=== PATIENT | female | born 1945 | race Caucasian/White ===

== ENCOUNTER 2018-01-07 18:50 | Inpatient (IN) | payer OTHER, BC ==
[2018-01-07] MEDS ORDERED: NS 1,000 ML IV ONE ×2 (19:55→21:08)
[2018-01-07 20:06] LABS: PLATELET COUNT 116 10^3/uL (150-400)
--- NOTE | 2018-01-07 20:17 | EDPHY ---
H & P Time Seen by Provider: 01/07/18 20:16 HPI/ROS: Chief complaint. Confusion, can't walk, back pain HPI. [age]-year-old female visiting from [place] with 3 day history back pain, confusion, decreased oral intake, can't walk. The back pain began on the drive from [place]. She has had previous lumbar compression fractures. There was however no injury. Patient is confused and at times not responsive per . She has not been able to walk. She normally walks with a walker but now is unable to walk whether off walker. No fever or cough or chest pain. She does have shortness of breath. No abdominal pain. She is able to control her bowel and bladder. No similar symptoms previously ROS Constitutional. Generalized weakness Eyes. no problems with vision ENT. no sore throat, no nasal drainage Cardiovascular. no chest pain Respiratory. Shortness of breath Abdominal. no abdominal pain, no nausea/vomiting, no diarrhea . no problems urinating MS. Low back pain Skin. no rash Lymph. no swollen glands Neuro. Can't walk and confused Past Medical/Surgical History: Past medical history seen for rheumatoid arthritis and GERD Social History: , nonsmoker, no alcohol Smoking Status: Never smoked Physical Exam: General Appearance: Alert well-developed female moderate distress vital signs show temp 37.4 degrees and heart rate 102. O2 saturation 88% on room air Eyes: Pupils equal and round no pallor or injection. ENT, Mouth: Mucous membranes are moist. Respiratory: Mild inspiratory expiratory rhonchi Cardiovascular: Regular rate and rhythm with tachycardia Gastrointestinal: Abdomen is soft and nontender, no masses, bowel sounds normal. Neurological: Awake and alert, sensory and motor exams grossly normal. Skin: Warm and dry, no rashes. Musculoskeletal: Neck is supple nontender. Tenderness to the right SI joint area but not over the lumbar spine Extremities symmetrical, full range of motion. Psychiatric: Patient is oriented X 1, there is no agitation. She thinks we are in [place] and she is unsure of the month Constitutional: Initial Vital Signs Temperature (C) 37.4 C 01/07/18 19:10 Heart Rate 102 H 01/07/18 19:10 Respiratory Rate 20 01/07/18 19:10 Blood Pressure 101/58 L 01/07/18 19:10 O2 Sat (%) 88 L 01/07/18 19:10 O2 Delivery Mode Room Air Allergies/Adverse Reactions: Sulfa (Sulfonamide Antibiotics) Allergy (Verified 01/07/18 21:43) Home Medications: Medication Instructions Recorded Denosumab [Prolia] 60 mg SQ Q180D 01/07/18 Docusate Sodium [Colace 100 MG (*)] 100 mg PO DAILY PRN 01/07/18 Folic Acid [Folic Acid 1 MG (*)] 1 mg PO DAILY 01/07/18 Hydrocodone/Acetaminophen [[place] 1 - 2 tab PO Q4H PRN 01/07/18 5/325 (*)] Leflunomide [Arava 10 mg (*)] 10 mg PO DAILY 01/07/18 Methotrexate [Xatmep] 15 mg PO MO 01/07/18 Omeprazole Magnesium 20 mg PO DAILY 01/07/18 Ondansetron [Zofran Odt] 8 mg PO TID PRN 01/07/18 Medical Decision Making - Diagnostics Imaging Results: Imaging Impressions Chest X-Ray 01/07/18 20:29 Impression: 1. Bronchitis/airways disease. 2. No definite focal pneumonia. 3. Consider chest two views when the patient's medical condition permits. Head CT 01/07/18 20:29 Impression: 1. Moderate atrophy. 2. No acute hemorrhage, hydrocephalus, or mass effect. 3. Cerebrovascular atherosclerosis. 4. No definite acute infarct. 5. Severe microvascular ischemic gliosis. 6. No epidural or subdural hematoma. Findings and recommendations discussed with Emergency Department physician, Natan Dalton M.D., at 2108 hours, on January 07, 2018. Final report concurs with initial preliminary interpretation. Lumbar Spine X-Ray 01/07/18 20:29 Impression: 1. Dextroscoliosis, with multilevel severe degenerative disk disease. 2. No definite acute compression fractures. 3. Mild old benign-appearing compression fracture of L1 vertebral body, with T12-L1 severe degenerative disk disease. 4. Consider additional CT imaging, if clinically indicated. Chest x-ray interpreted by me no pneumonia Lumbar spine x-ray shows to compression fractures of the lumbar spine Procedures: IV normal saline. Septic workup including blood and urine culture IV Rocephin ED Course/Re-evaluation: Serial evaluations. Patient is stable. Patient and I discussed imaging and lab results. We discussed treatment plan including recommendation for admission. She and her expressed understanding and agreement. Serial evaluations patient is stable. IV Rocephin Differential Diagnosis: I considered intracranial bleed, sepsis. Appears the patient has urinary tract infection but lactate negative. No evidence for pneumonia. No evidence for new lumbar compression fracture - Data Points Laboratory Results: Laboratory Results 01/07/18 20:02 01/07/18 20:02 01/07/18 01/07/18 01/07/18 21:04 21:00 20:42 WBC RBC Hgb Hct MCV MCH MCHC RDW Plt Count MPV Neut % (Auto) Lymph % (Auto) Avery % (Auto) Eos % (Auto) Baso % (Auto) Nucleat RBC Rel Count Absolute Neuts (auto) Absolute Lymphs (auto) Absolute Monos (auto) Absolute Eos (auto) Absolute Basos (auto) Absolute Nucleated RBC Immature Gran % Seg Neutrophils % Band Neutrophils % Lymphocytes % Monocytes % Eosinophils % Immature Gran # Absolute Seg Neuts Absolute Band Neuts Absolute Lymphocytes Absolute Monocytes Absolute Eosinophils Platelet Estimate Polychromasia Hypochromasia Oval Macrocytes Elliptocytes Acanthocytes (Spur) Keratocytes Schistocytes Smear Review By VBG Lactic Acid 1.9 mmol/L mmol/L (0.7-2.1) Sodium Potassium Chloride Carbon Dioxide Anion Gap BUN Creatinine Estimated GFR Glucose Calcium Total Bilirubin 1.6 mg/dL H mg/dL (0.1-1.4) Troponin I < 0.012 ng/mL ng/mL (0.000-0.034) Urine Color PADMA Urine Appearance HAZY Urine pH 5.0 (5.0-7.5) Ur Specific [place] 1.029 (1.002-1.030) Urine Protein 1+ H (NEGATIVE) Urine Ketones NEGATIVE (NEGATIVE) Urine Blood 2+ H (NEGATIVE) Urine Nitrate NEGATIVE (NEGATIVE) Urine Bilirubin NEGATIVE (NEGATIVE) Urine Urobilinogen 4.0 EU H EU (0.2-1.0) Ur Leukocyte Esterase 2+ H (NEGATIVE) Urine RBC 5-10 /hpf H /hpf (0-3) Urine WBC 25-50 /hpf H /hpf (0-3) Ur Epithelial Cells TRACE /lpf /lpf (NONE-1+) Urine Bacteria 1+ /hpf H /hpf (NONE SEEN) Urine Mucus 1+ /lpf /lpf (NONE-1+) Urine Glucose NEGATIVE (NEGATIVE) 01/07/18 01/07/18 20:02 20:02 WBC 25.36 10^3/uL H 10^3/uL (3.80-9.50) RBC 3.01 10^6/uL L 10^6/uL (4.18-5.33) Hgb 9.7 g/dL L g/dL (12.6-16.3) Hct 29.8 % L % (38.0-47.0) MCV 99.0 fL fL (81.5-99.8) MCH 32.2 pg pg (27.9-34.1) MCHC 32.6 g/dL g/dL (32.4-36.7) RDW 17.9 % H % (11.5-15.2) Plt Count 116 10^3/uL L 10^3/uL (150-400) MPV 10.8 fL fL (8.7-11.7) Neut % (Auto) Not Reported Lymph % (Auto) Not Reported Avery % (Auto) Not Reported Eos % (Auto) Not Reported Baso % (Auto) Not Reported Nucleat RBC Rel Count 0.0 % % (0.0-0.2) Absolute Neuts (auto) Not Reported Absolute Lymphs (auto) Not Reported Absolute Monos (auto) Not Reported Absolute Eos (auto) Not Reported Absolute Basos (auto) Not Reported Absolute Nucleated RBC 0.00 10^3/uL 10^3/uL (0-0.01) Immature Gran % Not Reported Seg Neutrophils % 82 % % Band Neutrophils % 2 % % Lymphocytes % 3 % % Monocytes % 9 % % Eosinophils % 6 % % Immature Gran # Not Reported Absolute Seg Neuts 20.80 10^/uL H 10^/uL (1.70-6.50) Absolute Band Neuts 0.51 10^3/uL 10^3/uL (0.00-0.70) Absolute Lymphocytes 0.76 10^3/uL L 10^3/uL (1.00-3.00) Absolute Monocytes 2.28 10^3/uL H 10^3/uL (0.30-0.80) Absolute Eosinophils 1.52 10^3/uL H 10^3/uL (0.03-0.40) Platelet Estimate DECREASED L (ADEQ) Polychromasia 1+ H Hypochromasia 1+ H Oval Macrocytes 1+ H Elliptocytes 1+ H Acanthocytes (Spur) 2+ H Keratocytes 2+ H Schistocytes 1+ H Smear Review By Pending VBG Lactic Acid Sodium 133 mEq/L L mEq/L (135-145) Potassium 4.4 mEq/L mEq/L (3.5-5.2) Chloride 102 mEq/L mEq/L (97-110) Carbon Dioxide 23 mEq/l mEq/l (22-31) Anion Gap 8 mEq/L mEq/L (8-16) BUN 15 mg/dL mg/dL (7-23) Creatinine 0.7 mg/dL mg/dL (0.6-1.0) Estimated GFR > 60 Glucose 99 mg/dL mg/dL (70-100) Calcium 7.7 mg/dL L mg/dL (8.5-10.4) Total Bilirubin Troponin I Urine Color Urine Appearance Urine pH Ur Specific [place] Urine Protein Urine Ketones Urine Blood Urine Nitrate Urine Bilirubin Urine Urobilinogen Ur Leukocyte Esterase Urine RBC Urine WBC Ur Epithelial Cells Urine Bacteria Urine Mucus Urine Glucose Medications Given: Discontinued Medications Sodium Chloride (Ns) 1,000 mls @ 0 mls/hr IV EDNOW ONE; Wide Open PRN Reason: Protocol Stop: 01/07/18 19:56 Last Admin: 01/07/18 20:06 Dose: 1,000 mls Ceftriaxone Sodium/Dextrose (Rocephin 1 Gm (Premix)) 50 mls @ 100 mls/hr IV EDNOW ONE PRN Reason: Protocol Stop: 01/07/18 21:37 Last Admin: 01/07/18 21:37 Dose: 50 mls Sodium Chloride (Ns) 1,000 mls @ 0 mls/hr IV ONCE ONE; Wide Open PRN Reason: Protocol Stop: 01/07/18 21:09 Last Admin: 01/07/18 21:43 Dose: 1,000 mls Departure - Departure Disposition: [facility] Inpatient Acute Clinical Impression: UTI (urinary tract infection) Qualifiers: Urinary tract infection type: site unspecified Hematuria presence: without hematuria Qualified Code(s): N39.0 - Urinary tract infection, site not specified Condition: Fair Referrals: NONE *PRIMARY CARE P,. [Primary Care Provider] - As per Instructions
--- NOTE | 2018-01-07 22:04 | CPEKG ---
Heart Rate: 101 RR Interval: 594 P-R Interval: 172 QRSD Interval: 82 QT Interval: 332 QTC Interval: 431 P [place]: 69 QRS [place]: -44 T Wave [place]: 57 EKG Severity - ABNORMAL ECG - EKG Impression: SINUS TACHYCARDIA EKG Impression: LEFT ATRIAL ABNORMALITY EKG Impression: LEFT AXIS DEVIATION EKG Impression: LOW VOLTAGE THROUGHOUT EKG Impression: CONSIDER ANTERIOR INFARCT Electronically Signed By: Natan Dalton 07-Jan-2018 23:55:21
[2018-01-07] MEDS ORDERED: ACETAMINOPHEN 325 MG TAB PO PRN (22:43)
[2018-01-07] MEDS ORDERED: NS 1,000 ML IV SCH (22:45)
[2018-01-07 22:55] LABS: INR 1.37 (0.83-1.16)
[2018-01-08] MEDS: LIDOCAINE 4%/MENTHOL 1% PATCH TD SCH (00:15)
--- NOTE | 2018-01-08 02:47 | CPEKG ---
Heart Rate: 115 RR Interval: 522 P-R Interval: 137 QRSD Interval: 64 QT Interval: 288 QTC Interval: 399 P [place]: 95 QRS [place]: -79 T Wave [place]: 74 EKG Severity - ABNORMAL ECG - EKG Impression: SINUS TACHYCARDIA EKG Impression: PROBABLE LEFT ATRIAL ABNORMALITY EKG Impression: INFERIOR INFARCT, OLD EKG Impression: LATERAL INFARCT, AGE INDETERMINATE EKG Impression: ANTERIOR INFARCT, AGE INDETERMINATE Electronically Signed By: Ke Pavon 08-Jan-2018 09:36:49
[2018-01-08] MEDS: ALBUTEROL 3 ML DEYVIAL IH PRN ×2 (03:00→05:26)
--- NOTE | 2018-01-08 04:47 | GHP ---
[f rep st] HISTORY AND PHYSICAL DATE OF ADMISSION: 01/07/2018 [place]CP: [place]. SOURCE: Patient is currently confused, fatigued. She does intermittently say hello and says a few w ords, but does not really follow any commands with regularity. is at bedside and provides hi story. Case was discussed with ED provider and EMR was also reviewed. CHIEF COMPLAINT: Confusion and back pain. HISTORY OF PRESENT ILLNESS: This is a 72-year-old female with longstanding history of rheumatoid art hritis on DMARD therapy with methotrexate as well as Prolia injection, chronic pain, history of lumba r compression fracture, and GERD, who presents to the emergency department today with her usha dove complaints of several days of confusion and right low back pain. Patient and her drove in from [place] approximately a week ago and a few days. Patient had been complaining of some increasing b ack pain, but they thought perhaps it was just from sitting in the car for too long. Patient subsequ ently had some increasing confusion, decreased oral intake, and so brought patient into the E D for evaluation. 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 Patient has not had any known fevers, chills, cough, rhinorrhea, sore throat, nausea, vomiting, a nd just diarrhea starting today. She has no melena, hematochezia. No known rashes or sores. Since arrival to the floor, patient has subsequently developed a little bit of wheezing and tachypnea. Her mentation has been approximately the same with persistent complaints of low back pain. Per the husb and, patient does have a history of intermittently requiring nebulizer treatments when in the hospita l postoperatively for wheezing. She has no known lung disease. No asthma, COPD. is unsure if she has any history of pulmonary fibrosis. REVIEW OF SYSTEMS: GENERAL: No fevers, chills, generalized weakness, generalized deconditioning, de creased appetite. SKIN: No known rashes or sores. ENT: No congestion, sore throat known. EYES: Unknown if patient has had any complaints of changes in vision. CV: No reported complaints of chest pain or palpitations. RESPIRATORY: Wheezing as noted above. Patient complains of shortness of terri ath. GI: No known nausea, vomiting, abdominal pain, episode of diarrhea currently. : No known d ysuria or hematuria. Right flank pain. MUSCULOSKELETAL: Chronic back pain, joint pain due to RA. NEURO: Confusion, as per above. Patient with generalized weakness. Does require moderate amount of assistance, is unable to ambulate independently, but can usually help her stand and transfer to wheelchair, wheelchair to toilet. PSYCH: No increase in anxiety. Patient with confusion, as ab ove. ALLERGIES: To sulfa, has an adverse reaction with the methotrexate. No known react allergic reactio n. HOME MEDICATIONS: Methotrexate which was taken yesterday, 50 mg p.o. on Mondays; Arava 10 mg p.o. da ; Prolia injection 60 mg every 6 months; Zofran ODT 8 mg p.o. t.i.d. p.r.n.; folic acid 1 mg p.o. daily; docusate 100 mg p.o. daily p.r.n.; omeprazole 20 mg p.o. daily; [place] 5/325, 1-2 tabs p.o. q.4 hours p.r.n. for pain. PAST MEDICAL HISTORY: Significant for rheumatoid, GERD, lumbar compression fractures, history of C d ifficile, history previously of wheezing, occasional urinary incontinence. 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 FAMILY HISTORY: No known lung disease. No known autoimmune disorders. SOCIAL HISTORY: Patient is . She lives with her . She is visiting from [place] and they travelled by car. Patient is generally mobile with limited capacity. In the last several days, she has not been able to ambulate independently but able to stand. She does not smoke, drink, or do marcella gs. COR STATUS: DNR/DNI per . Patient does have advance directive in place. PHYSICAL EXAM: VITAL SIGNS: Blood pressure 101/58, heart rate 102, O2 sat 88% on room air, temperat ure at this time. Vitals currently, 117/73, heart rate increased from the low 90s to the one-teens. Respiratory rate 18, O2 sat 97 on 2 L by nasal cannula, temperature 37.1. GENERAL: Patient without any acute distress. She does have some tachypnea. She lays quietly in bed asleep, kind of somnolen t but arousable. is at bedside. Patient is not really able to follow commands. She does ap pear much older than stated age. She has some increased work of breathing, shallow breath. Expirato ry wheezes. CV: Tachycardic with regular rhythm. Limited exam secondary to tachycardia and respira tory status, but I do not appreciate loud murmurs. She does have 1 to 2+ pitting edema bilateral low er extremities, which reports is about baseline. No calf tenderness. LUNGS: With expirator y wheezes bilaterally. Patient has diminished breath sounds at the bases with crackles. Left greate r than right. ABDOMEN Positive bowel sounds. Obese, soft, nontender to palpation. No rebound, gua rding, or masses appreciated. : No Lucas catheter in place. No suprapubic tenderness to palpatio n. EXTREMITIES: As noted above with to 1 to 2+ pitting edema bilateral lower extremities below the knee. Patient with decreased pedal pulses bilaterally, likely secondary to edema. NEURO: Limited e xam secondary to patient's ability to cooperate. She does appear more alert when staff are getting h er up to go to the commode and she is a little argumentative but interactive. She is pleasant and ar gumentative in jest. She has generalized weakness, does require assist to pivot. She does move all extremities. Strength is significantly weak in upper and lower extremities. LABORATORY STUDIES: WBC 25.36, H and H 9.7 and 29.8, MCV of 99.0, platelet count is 116. Patient wi th absolute segmented neutrophils of 20.8, no absolute increase in bands, percentage is not completed , smear is pending. PT 7.0, INR is 1.37, PTT is 37.7. Lactic acid 1.9. Sodium is 133, potassium is 4.4, chloride is 102, CO2 is 23, anion gap is 8, BUN 50, creatinine 0.7, GFR greater than 60, glucos e 99, calcium 7.7, total bilirubin is 1.6, conjugated bilirubin 0.9, ALT is 26, AST is 45, alk phos 2 02. Troponin is negative. Total protein is 5.8, albumin is 2.8. UA specific gravity 1.029 with pH of 5.0, hazy, paula urine, 1+ protein, 2+ blood, negative nitrates, 2+ leuk esterase, rbc's 5-10, wbc 's 25-50, bacteria 1+, mucus 1+, glucose is negative. Blood cultures, urine cultures pending. EKG initial from the emergency department: Sinus tachycardia in the 100s with left axis deviation, l ow voltage, Q-waves present in the inferior, anterior, and lateral leads. No acute ST elevations or depressions. QTc is 431. Chest x-ray: Image report was reviewed myself, showing bronchitis and airway disease. No definitive focal pneumonia. CT head without contrast: Showing moderate atrophy. No acute hemorrhage, hydrocephalus, or mass-eff ect. Cerebrovascular atherosclerosis. No definitive acute infarct. Severe microvascular ischemic g liosis. No epidural, subdural hematoma. Lumbar spine x-rays: Image report reviewed, showing dextroscoliosis, multilevel severe degenerative disk disease. No acute compression fractures. Mild old benign-appearing compression fracture L1, wi th T12-L1 severe degenerative disk disease. Repeat EKG on the medical floor: Reviewed, showing similar sinus tachycardia, slightly decreased vol tage. Q-waves in the anterolateral and inferior leads again. No acute ST changes. QTc 399. ASSESSMENT AND PLAN: 1. This is a 72-year-old female with history of rheumatoid arthritis, on disease-modifying antirheum atic drugs therapy and immunosuppressive therapy with Arava, who presents to the emergency department today with several-day history of confusion and complaints of right-sided back pain. Patient with a history of remote lumbar compression fracture and osteoporosis, on Prolia. Her urine was concerning for urinary tract infection and patient has been started on Rocephin. Patient's blood pressures wer e responsive to fluid. She did have a few low blood pressures noted. They also responded to continu ed infusion. She did receive 2 L intravenous fluids and been started on sepsis protocol. Blood cult ures, urine culture are all pending. Patient has been started on Rocephin. Her quick Sequential Org an Failure Assessment score is 2 at this time given her confusion and hypotension which was transient . Currently blood pressures are adequate, slightly elevated. Patient also with increasing respirato ry status with expiratory wheezing. There is no previous documented history or known history per hus band of asthma or chronic obstructive pulmonary disease. It is unknown if patient has developed any pulmonary fibrosis related to her rheumatoid or the disease-modifying antirheumatic drugs therapy. Carlitos macdonald does note that patient has required nebulizer treatments during her previous hospitalizations. She does have expiratory wheezes and some crackles bibasilarly so I am unsure if she has developed a little bit of pulmonary edema. She has known history of congestive heart failure, but she does hav e some chronic lower extremity edema, which patient does state is at baseline. Will continue with Ro cephin therapy. Cultures are pending, as above. No evidence of pneumonia was on chest x-ray, so zoila l hold off on escalating antibiotic therapy at this time. The patient may require echocardiogram sherley lalita CTA. However, at this time, will provide patient with nebulizer treatment, monitor for any impro vement in respiratory status. Consider echocardiogram and CTA tomorrow if she continues to have symp toms. She does not required any intubation at this time or BiPAP. reports also that she is a do not resuscitate. 2. Back pain, likely related to urinary tract infection versus multifactorial including history of l umbar compression fracture and chronic joint pain in setting of rheumatoid arthritis. 3. 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 Antibiotics as noted above. 4. Anemia, likely of chronic disease. No evidence of active bleeding at this time. Will continue t o monitor closely. 5. Thrombocytopenia, likely related to patient's chronic illness and her medications for rheumatoid arthritis. 6. Coagulopathy. Patient is not on any anticoagulation at this time. 7. Hyponatremia, is likely secondary to hypovolemia as patient did have some low blood pressures pre viously; now improved status post intravenous fluids. 8. Hypocalcemia. Seems to correct for low albumin. Plan to check ionized in the morning. 9. Hypoalbuminemia, likely related to patient's chronic illness versus malnutrition. Will plan to c ontinue to monitor. 10. Hyperbilirubinemia, elevated in setting of sepsis. Patient without any evidence of abdominal pa in. Will continue to monitor along with LFTs. 11. Gastroesophageal reflux disease. Continue patient's proton pump inhibitor. 12. Rheumatoid arthritis. Holding patient's disease-modifying antirheumatic drugs and immunosuppre ssive therapy. 13. History lumbar compression fracture. Lidoderm patch applied as necessary. 14. Fluid, electrolyte, nutrition. Will discontinue intravenous fluids at this time, saline lock, a nd give patient a chance to mobilize the fluid. If not, may need to consider initiation of Lasix aft er some reassessment. Electrolytes will be monitored and replaced if needed. Diet as tolerated. 15. Prophylaxis. Sequential compression devices. Holding anticoagulation in setting of thrombocyto penia and increased bleeding risks. 16. Cor status is do not resuscitate/do not intubate. Reviewed with the . Their family phys hector has advanced directives on file. 17. Course/disposition. Patient has been admitted to inpatient status on the medical floor at this time. Anticipate that she will require greater than 2 midnights' stay in setting of severe sepsis wi th confusion, encephalopathy. /[id number]/MODL
[2018-01-08] MEDS ORDERED: FUROSEMIDE 20 MG/2 ML VIAL IVP ONE (05:20)
[2018-01-08 06:01] LABS: PLATELET COUNT 95 10^3/uL (150-400)
--- NOTE | 2018-01-08 08:15 | PDMN ---
Medical Necessity Medical necessity: est los>2mn for severe sepsis w/confusion and encephalopathy , concerning for UTI, back pain, hyponatremia, and wheezing/crackles; admit for IV abx, nebs, and follow cx's; comorbidities include RA, immunosuppressive state , anemia, hx lumbar fx and CHF; per order and H&P 01/07/18
[2018-01-08] MEDS: ENOXAPARIN 40 MG/0.4 ML SYR SC SCH (09:00)
[2018-01-08] MEDS ORDERED: DOCUSATE SODIUM 100 MG CAP PO PRN (09:13)
[2018-01-08] MEDS ORDERED: PROTOCOL CALCIUM 1 DOSE IV PRN (09:15)
--- NOTE | 2018-01-08 09:43 | HOSPPROG ---
Hospitalist Progress Note Assessment/Plan: Acute encephalopathy - CT head neg for acute process, atrophy and microvascular dz noted. Suspect 2/2 infectious process. Improving per family. Sepsis - criteria on admission: HR, wbc's, elevated bili. Source possibly urinary with abnormal UA and flank pain. UCx and BCx's pending. WBCs trending down. -cont ceftriaxone -follow culture data AHRF - wheezing is new. Recent travel from [place] noted. No prior h/o asthma, COPD or tobacco use. Note MTX and immunomodulator use for RA. -check STAT CTA to r/o PE and better evaluation of airways and lung parenchyma -wean O2 as able -prn nebs -send viral PCR -consider echo RA - hold MTX and DMARD Immunocompromised state Chronic lumbar compression fractures - xray pers reviewed/interp- chronic compression fractures. No midline tenderness. -consider further imaging with L-spine MRI Osteoporosis - on Prolia GERD - cont PPI Anemia / thrombocytopenia - no e/o active bleeding. Plts may be low as sepsis response. -hold Lovenox with low plts -trend DVT PPLX - hold pharm with low plts, SCD's DNR Dispo - cont inpt for ongoing evaluation and management of sepsis and hypoxemia Subjective: Pt is awake, still a bit confused, unable to provide full history. Asks her to speak for her. She is tired. No fevers/chills overnight. C/O right flank pain, doesn't feel midline like prior compression fractures. No N/V. Little oral intake. No CP, +SOB and wheezing. Denies cough. Objective: Vital Signs Temp Pulse Resp BP Pulse Ox 37.4 C 100 18 114/72 100 01/08/18 08:48 01/08/18 07:47 01/08/18 07:47 01/08/18 07:47 01/08/18 07:47 Laboratory Results 01/08/18 05:45 01/08/18 05:45 01/07/18 01/08/18 01/09/18 05:59 05:59 05:59 Intake Total 2220 Balance 2220 PT 17.0 SEC (12.0-15.0) H 01/07/18 22:35 INR 1.37 (0.83-1.16) H 01/07/18 22:35 - Physical Exam Constitutional: no apparent distress Eyes: PERRL Ears, Nose, Mouth, Throat: moist mucous membranes Cardiovascular: regular rate and rhythym Respiratory: no respiratory distress, reduced air movement, expiratory wheeze, inspiratory crackles Gastrointestinal: normoactive bowel sounds, soft, non-tender abdomen Skin: warm Musculoskeletal: generalized weakness Psychiatric: encephalopathic ICD10 Worksheet Patient Problems: Problems Problem Status Onset UTI (urinary tract infection) Acute
[2018-01-08] MEDS: HYDROCODONE/APAP 5/325 TAB PO PRN ×2 (09:44→14:01)
[2018-01-08] MEDS ORDERED: NS W/ 20 KCl/L 1,000 ML IV SCH (10:00)
[2018-01-08] MEDS ORDERED: IOPAMIDOL (ISOVUE 370) 100 ML BTL IV ONE (10:33)
--- NOTE | 2018-01-08 11:15 | ASMTCASEMG ---
Living Arrangements What is your living Answers: With Spouse arrangement? Who do you live with? Type Of Residence What kind of residence do Answers: House you live in? Discharge Plan Comments Coordination Status Comments Notes: Pt is a 72 y/o female admitted for an UTI. Pt will most likely d/c independent when medically stable. No therapies ordered at this time. CM available for changes. Plan: Independent Date Signed: 01/08/2018 11:14 AM Electronically Signed By:NIR Rod
[2018-01-08] MEDS: PANTOPRAZOLE SODIUM 40 MG TAB PO SCH (12:40)
[2018-01-08] MEDS: PATCH REMOVAL 1 EA PATCH TD SCH (12:42)
--- NOTE | 2018-01-08 17:06 | ECHO ---
[email or web address] [address] [address] Main: [phone] Fax: Transthoracic Echocardiogram Name: ANNE REAL MR#: [id number] Study Date: 01/08/2018 Study Time: 10:16 AM Date of : 1945 Age: 72 year(s) Height: 160 cm (63 in.) Weight: 64.86 kg (143 lb.) BSA: 1.68 m2 Gender: Female Examination: Echo Indication: hypoxemia, q waves on ekg Image Quality: Adequate Contrast: Requested by: Genesis Casiano BP: / Heart Rate: Rhythm: Indication: hypoxemia, q waves on ekg Procedure Staff Internet Designer: Azul Phan [facility] Reading Physician: Ke Pavon MD Requesting Provider: Conclusions: Normal size left ventricle. No LV hypertrophy. Normal global systolic LV function. EF is 65 %. No regional wall motion abnormality. Grade 1 diastolic dysfunction (abnormal relaxation). Trivial to mild mitral regurgitation. The aortic valve is normal in appearance and function. The tricuspid valve is normal in appearance and function. There is no pulmonic regurgitation seen. Normal size aortic root measuring 3.1 cm. No pericardial effusion. Measurements: Chambers Valvular Assessment AV/MV Valvular Assessment TV/PV Normal Normal Normal Name Value Range Name Value Range Name Value Range Ao Zohreh (2D): 3.1 cm (1.4 cm-2.6 AV Vmax: 1.82 m/s (1 m/s-1.7 PV Vmax: 1.02 m/s (0.6 m/s-0.9 cm) m/s) m/s) IVSd (2D): 0.9 cm (0.6 cm-1.1 AV maxP mmHg ( - ) PV PGmax: 4 mmHg ( - ) cm) AV meanP mmHg ( - ) LVDd (2D): 4.3 cm (3.9 cm-5.3 LVOT Vmax: 1.16 m/s (0.7 m/s-1.1 cm) m/s) LVDs (2D): 2.6 cm (2.1 cm-4 TRISH (Vmax): 2.0 cm2 ( - ) cm) TRISH (VTI): 2.3 cm ( - ) LVPWd (2D): 0.9 cm ( - ) MV E Vmax: 0.92 m/s ( - ) LVOTd 2.0 cm 2.0 cm mm MV A Vmax: 1.05 m/s ( - ) LVEF (BP): 65 % (>=55 %) MV E/A: 0.88 ( - ) RVDd(2D): 2.2 cm (1.9 cm-3.8 MV PHT: 0.057 s ( - ) cmmm) MVA (PHT): 3.9 s ( - ) Patient: ANNE REAL Study Date: 01/08/2018 Page 1 of 2 10:16 AM Continued Measurements: Chambers Valvular Assessment AV/MV Valvular Assessment TV/PV Name Value Name Value Name Value LADs: 2.9 cm MV DecTime: 197 m/s CVP (est.): 5 mmHg LADs Lon.0 cm MV E/E' Septal: 8.90 LA Area: 14.2 cm2 MV E/E' Lateral: 7.20 LA Volume: 34 ml LA Volume Index: 20.2 ml/m2 RA Area: 13.7 cm2 Additional Vessels Name Value Ao Ascendin.7 cm Inferior Vena Cava: 2.2 cm Findings: Left Ventricle: Normal size left ventricle. No LV hypertrophy. Normal global systolic LV function. EF is 65 %. No regional wall motion abnormality. Grade 1 diastolic dysfunction (abnormal relaxation). Right Ventricle: Normal size right ventricle. Normal RV function. Left Atrium: The left atrium is normal in size. Right Atrium: The right atrium is normal in size. Mitral Valve: The mitral valve is normal in appearance and function. Trivial to mild mitral regurgitation. No mitral stenosis is present. Aortic Valve: The aortic valve is normal in appearance and function. There is no aortic valve regurgitation. No aortic valve stenosis is present. Tricuspid Valve: The tricuspid valve is normal in appearance and function. There is no significant tricuspid valve regurgitation. Pulmonic Valve: The pulmonic valve is normal in appearance and function. There is no pulmonic regurgitation seen. Aorta: The aorta is normal. Normal size aortic root measuring 3.1 cm. Normal size ascending aorta measuring 2.7 cm. IVC: The IVC is dilated. Pericardium: No pericardial effusion. No pleural effusion. Exam Comments: Patient supine, refused to lay on left side . (No Signature Object) Patient: ANNE REAL Study Date: 01/08/2018 Page 2 of 2 10:16 AM [id number]
[2018-01-09] MEDS: ONDANSETRON 4 MG/2 ML VIAL IVP PRN ×2 (00:36→19:24)
[2018-01-09] MEDS: LIDOCAINE 4%/MENTHOL 1% PATCH TD SCH (00:36)
[2018-01-09] MEDS: HYDROCODONE/APAP 5/325 TAB PO PRN ×2 (00:41→10:01)
[2018-01-09 05:12] LABS: PLATELET COUNT 112 10^3/uL (150-400)
[2018-01-09] MEDS ORDERED: CALCIUM GLUCONATE 50 ML IV ONE (08:24)
[2018-01-09] MEDS ORDERED: CALCIUM GLUCONATE 1 GM in D5W 50 ML IV ONE (08:30)
[2018-01-09] MEDS: FOLIC ACID 1 MG TAB PO SCH (08:36)
[2018-01-09] MEDS: PANTOPRAZOLE SODIUM 40 MG TAB PO SCH (08:36)
[2018-01-09] MEDS: ENOXAPARIN 40 MG/0.4 ML SYR SC SCH (08:39)
--- NOTE | 2018-01-09 09:37 | HOSPPROG ---
Hospitalist Progress Note Assessment/Plan: Acute encephalopathy - Improving. Suspect 2/[address] head neg for acute process, atrophy and microvascular dz noted. Sepsis 2/2 UTI - criteria on admission: HR, wbc's, elevated bili. WBCs trending down. Lactate nl. -cont ceftriaxone -follow culture data, GNR's on UCx, BCx's ngtd -d/c beltrán Acute C diff - diarrhea started last night, +h/o C diff 2 yrs ago, which was just reported to me today -po vanc AHRF - Now on room air. CTA reviewed- neg for PE, atelectatic changes and pleural thickening related to prior breast cancer tx. No prior h/o asthma, COPD or tobacco use. Note MTX and immunomodulator use for RA, may be contributory to chronic lung dz. -incentive spirometer -prn nebs RA - holding MTX and DMARD therapy during acute illness Immunocompromised state Chronic lumbar compression fractures - xray pers reviewed/interp- chronic compression fractures. No midline tenderness. Possible liver cirrhosis - incidental finding on u/s with small amt of ascites. believes this is a familiar finding and possibly related to RA meds. Low albumin and elevated INR suggest poor synthetic function / coagulopathy. -send hepatitis panel -may eventually warrant diuretic therapy -outpt f/u with GI upon return to [place] Hypocalcemia - serum Ca 7.8 with albumin correction -replacement protocol Osteoporosis - on Prolia GERD - cont PPI Anemia / thrombocytopenia - macrocytic, nl B12 and folate. No e/o active bleeding. Plts trending up now. -follow DVT PPLX - Lovenox resumed as plts >100 DNR Dispo - cont inpt for ongoing evaluation and management of sepsis and hypoxemia , PT/OT evals requested, will likely require SNF. CM informed. They live in [place]. Subjective: Pt doing a little better today. Mentation improved. No fevers/ chills. No N/V. Some flank pain persists. Still has beltrán. Taking po better today. Has not ambulated. Objective: Vital Signs Temp Pulse Resp BP Pulse Ox 37.1 C 93 18 119/81 H 95 01/09/18 07:35 01/09/18 07:35 01/09/18 07:35 01/09/18 07:35 01/09/18 07:35 Microbiology 01/08/18 13:50 Respiratory Panel (PCR) - Final Nasal, Sinus - Anaerobic Tube/Swab No Organism Detected Laboratory Results 01/09/18 04:50 01/09/18 04:50 01/08/18 01/09/18 01/10/18 05:59 05:59 05:59 Intake Total 2220 885 Output Total 900 Balance 2220 -15 PT 17.0 SEC (12.0-15.0) H 01/07/18 22:35 INR 1.37 (0.83-1.16) H 01/07/18 22:35 - Physical Exam Constitutional: chronically ill appearing Eyes: PERRL Ears, Nose, Mouth, Throat: moist mucous membranes Cardiovascular: regular rate and rhythym Respiratory: no respiratory distress, reduced air movement, inspiratory crackles Gastrointestinal: normoactive bowel sounds, soft, non-tender abdomen Skin: warm Musculoskeletal: generalized weakness Neurologic: AAOx3 Psychiatric: interacting appropriately ICD10 Worksheet Patient Problems: Problems Problem Status Onset UTI (urinary tract infection) Acute
[2018-01-09] MEDS: ALBUTEROL 3 ML DEYVIAL IH PRN (09:49)
[2018-01-09] MEDS: VANCOMYCIN 125 MG/2.5 ML UDL PO SCH ×4 (10:00→21:28)
[2018-01-09 10:27] LABS: HEPATITIS B SURFACE ANTIGEN NEGATIVE (NEGATIVE)
[2018-01-09 10:32] LABS: HEPATITIS B CORE AB IGM NEGATIVE (NEGATIVE)
[2018-01-09 10:44] LABS: HEPATITIS A ANTIBODY TOTAL NEGATIVE (NEGATIVE); HEPATITIS C ANTIBODY TOTAL NEGATIVE (NEGATIVE)
--- NOTE | 2018-01-09 13:24 | CPEKG ---
Heart Rate: 104 RR Interval: 577 P-R Interval: 148 QRSD Interval: 82 QT Interval: 336 QTC Interval: 442 P [place]: 54 QRS [place]: -62 T Wave [place]: 42 EKG Severity - ABNORMAL ECG - EKG Impression: SINUS TACHYCARDIA EKG Impression: LAD, CONSIDER LEFT ANTERIOR FASCICULAR BLOCK EKG Impression: LOW VOLTAGE THROUGHOUT EKG Impression: CONSIDER ANTERIOR INFARCT Electronically Signed By: Ke Pavon 09-Jan-2018 22:35:20
--- NOTE | 2018-01-09 15:33 | ASMTCMCOM ---
CM Note CM Note Notes: CM met w/ pt, and daughter for dispo planning. CM spoke w/ Dr. Casiano regarding d/c POC. Dr. Casiano is recommending SNF. Therapies have been ordered. CM provided family w/ senior blue book. Family reports that pt does better at home w/ HC. Pt has been to SNF before in [place]. Pt and her are visiting from [place]. CM provided pt and family CM's phone number. CM to follow. Plan: TBD Date Signed: 01/09/2018 03:32 PM Electronically Signed By:NIR Rod
[2018-01-09] MEDS: PATCH REMOVAL 1 EA PATCH TD SCH (16:03)
[2018-01-10] MEDS: LIDOCAINE 4%/MENTHOL 1% PATCH TD SCH ×2 (00:13→23:58)
[2018-01-10] MEDS: VANCOMYCIN 125 MG/2.5 ML UDL PO SCH ×4 (04:53→20:50)
[2018-01-10 04:59] LABS: PLATELET COUNT 146 10^3/uL (150-400)
[2018-01-10] MEDS ORDERED: CALCIUM GLUCONATE 50 ML IV ONE (07:06)
[2018-01-10] MEDS ORDERED: CALCIUM GLUCONATE 1 GM in D5W 50 ML IV ONE (07:30)
[2018-01-10] MEDS: ENOXAPARIN 40 MG/0.4 ML SYR SC SCH (09:15)
[2018-01-10] MEDS: FOLIC ACID 1 MG TAB PO SCH (09:16)
[2018-01-10] MEDS: PANTOPRAZOLE SODIUM 40 MG TAB PO SCH (09:16)
--- NOTE | 2018-01-10 10:15 | HOSPPROG ---
Hospitalist Progress Note Assessment/Plan: Acute encephalopathy - Sec to acute infection, resolved. CT head neg for acute process, atrophy and microvascular dz noted. Sepsis 2/2 UTI - criteria on admission: HR, wbc's, elevated bili. Presented with flank pain, no e/o hydro on u/s. WBCs normalized. Afebrile. -cont ceftriaxone, tailor to po atbx as indicated by sensitivities -follow culture data, GNR's on UCx, BCx's ngtd -d/c'd beltrán yesterday Acute C diff - diarrhea persists, +h/o C diff 2 yrs ago -po vanc, will increase to 250 QID and hope for better response AHRF - Now on room air. Suspect shunting from sepsis. CTA neg for PE, atelectatic changes and pleural thickening related to prior breast cancer tx. No prior h/o asthma, COPD or tobacco use. Note MTX and immunomodulator use for RA, may be contributory to chronic lung dz. -incentive spirometer -prn nebs RA - holding MTX and DMARD therapy during acute illness Immunocompromised state Chronic lumbar compression fractures - xray pers reviewed/interp- chronic compression fractures. No midline tenderness. Possible liver cirrhosis - incidental finding on u/s with small amt of ascites. believes this is a familiar finding and possibly related to RA meds. Low albumin and elevated INR suggest poor synthetic function / coagulopathy. -hepatitis panel neg (Hep B SAb still pending) -may eventually warrant diuretic therapy -outpt f/u with GI upon return to [place] Hypocalcemia - serum Ca 7.8 with albumin correction -replacement protocol Osteoporosis - on Prolia GERD - cont PPI Anemia / thrombocytopenia - macrocytic, nl B12 and folate. No e/o active bleeding. Plts trending up now. -follow DVT PPLX - Lovenox resumed as plts >100 DNR Dispo - cont inpt for ongoing evaluation and management of sepsis and hypoxemia , PT/OT evals requested, will likely require SNF. CM informed. They live in [place]. Subjective: Pt mentating better, breathing better. C/O abdominal cramping, ongoing watery diarrhea overnight. No fevers/chills. No CP or SOB. Flank pain improved. Taking some po, 1/2 an ensure this am Objective: Vital Signs Temp Pulse Resp BP Pulse Ox 36.9 C 98 16 116/66 91 L 01/10/18 07:33 01/10/18 07:33 01/10/18 07:33 01/10/18 07:33 01/10/18 07:33 Laboratory Results 01/10/18 04:45 01/09/18 04:50 01/09/18 01/10/18 01/11/18 05:59 05:59 05:59 Intake Total 885 250 Output Total 900 600 Balance -15 250 -600 PT 17.0 SEC (12.0-15.0) H 01/07/18 22:35 INR 1.37 (0.83-1.16) H 01/07/18 22:35 - Physical Exam Constitutional: chronically ill appearing Eyes: PERRL Ears, Nose, Mouth, Throat: moist mucous membranes Cardiovascular: regular rate and rhythym Respiratory: no respiratory distress, clear to auscultation Gastrointestinal: normoactive bowel sounds, soft, non-tender abdomen Skin: warm Musculoskeletal: generalized weakness Neurologic: AAOx3 Psychiatric: interacting appropriately ICD10 Worksheet Patient Problems: Problems Problem Status Onset UTI (urinary tract infection) Acute
[2018-01-10] MEDS: ONDANSETRON 4 MG/2 ML VIAL IVP PRN (11:01)
[2018-01-10] MEDS: PATCH REMOVAL 1 EA PATCH TD SCH (11:02)
[2018-01-10] MEDS: HYDROCODONE/APAP 5/325 TAB PO PRN (11:11)
--- NOTE | 2018-01-10 12:15 | ASMTCMCOM ---
CM Note CM Note Notes: Spoke w/PT and [facility], recommend pt go to a SNF before returning to [place]. Met with family, they will be touring facilities tomorrow, CM checked into [facility] but no availability at this time. Family to let CM know their choice. DC Plan: SNF Date Signed: 01/10/2018 12:14 PM Electronically Signed By:Kristy Hunter RN
--- NOTE | 2018-01-10 15:41 | ASMTCMCOM ---
CM Note CM Note Notes: Spoke w/pt's again, would like referrals sent to [facility] and [facility]. DC Plan: SNF Date Signed: 01/10/2018 03:40 PM Electronically Signed By:Kristy Hunter RN
[2018-01-10] MEDS: NS W/ 20 KCl/L 1,000 ML IV SCH (16:21)
[2018-01-11] MEDS: HYDROCODONE/APAP 5/325 TAB PO PRN ×2 (00:16→08:08)
[2018-01-11] MEDS: VANCOMYCIN 125 MG/2.5 ML UDL PO SCH ×4 (05:53→20:44)
[2018-01-11] MEDS ORDERED: CALCIUM GLUCONATE 50 ML IV ONE (06:59)
[2018-01-11] MEDS ORDERED: CALCIUM GLUCONATE 1 GM in D5W 50 ML IV ONE (07:30)
[2018-01-11] MEDS: PANTOPRAZOLE SODIUM 40 MG TAB PO SCH (08:08)
[2018-01-11] MEDS: FOLIC ACID 1 MG TAB PO SCH (08:08)
[2018-01-11] MEDS: ENOXAPARIN 40 MG/0.4 ML SYR SC SCH (08:09)
[2018-01-11] MEDS ORDERED: IPRATROPIUM/ALBUTEROL 3 ML DEYVIAL ONE (14:09)
[2018-01-11] MEDS: IPRATROPIUM/ALBUTEROL 3 ML DEYVIAL IH SCH ×2 (14:12→22:31)
[2018-01-11] MEDS: PATCH REMOVAL 1 EA PATCH TD SCH (15:04)
--- NOTE | 2018-01-11 15:20 | ASMTCMCOM ---
CM Note CM Note Notes: Spoke w/pt's , they have chosen [facility]. CM spoke w/Kanchan, she is still reviewing. Pt will be ready for dc in a few days. DC Plan: SNF Date Signed: 01/11/2018 03:19 PM Electronically Signed By:Kristy Hunter RN
--- NOTE | 2018-01-11 15:20 | HOSPPROG ---
Hospitalist Progress Note Assessment/Plan: 72 yo F with hx of RA on chronic immune suppression pw sepsis. # Acute encephalopathy - Sec to acute infection, resolved. CT head neg for acute process, atrophy and microvascular dz noted. # Sepsis-- 2/2 UTI and c diff - criteria on admission: HR, wbc's, elevated bili. Presented with flank pain, no e/o hydro on u/s. WBCs now normalized but initially very elevated. Afebrile. # proteus UTI: with > 100K proteus and symptomatic on arrival. [place] sensitive. Will transition from ctx to levaquin and complete 10 day total course. # Acute C diff - diarrhea now resolved, +h/o C diff 2 yrs ago, has been on higher dose of PO vanco but with resolution of sxs now will go back to usual dosing # AHRF - Suspect largely due to atelectasis. Now on room air. CTA personally reviewed and neg for PE, atelectatic changes and pleural thickening related to prior breast cancer tx. Continue IS, OOB to chair/ambulation, nebs as needed. # generalized weakness/anorexia: appetite slow to return, mobility limited, working with pt/ot # thrush: presumed thrush noted on patients tongue, painful, started nystatin and magic mouthwash, if no improvement will consider further eval of lesions # RA with chronic immune compromise - holding MTX and DMARD therapy during acute illness, can likely resume in coming days # Chronic lumbar compression fractures - xray pers reviewed/interp- chronic compression fractures. No midline tenderness. # Possible liver cirrhosis - incidental finding on u/s with small amt of ascites. Per Dr. Casiano notes, believes this is a familiar finding and possibly related to RA meds. Low albumin and elevated INR suggest poor synthetic function / coagulopathy. Hep studies negative, no PE findings c/w chronic liver disease. # Hypocalcemia - repleting as needed # Osteoporosis - on Prolia # GERD - cont PPI # Anemia / thrombocytopenia - macrocytic, nl B12 and folate. No e/o active bleeding. Plts trending up now. Recommend OP follow up. # DVT PPLX - Lovenox resumed as plts >100 DNR Dispo - cont inpt for ongoing evaluation and management of sepsis and hypoxemia , PT/OT evals requested, will likely require SNF. CM informed. They live in [place]. Subjective: no significant overnight events, patient currently feeling slightly better but still very weak, not eating Objective: Vital Signs Temp Pulse Resp BP Pulse Ox 36.8 C 103 H 14 119/86 H 94 01/11/18 07:39 01/11/18 14:15 01/11/18 14:15 01/11/18 07:39 01/11/18 14:15 Laboratory Results 01/10/18 04:45 01/11/18 05:00 01/10/18 01/11/18 01/12/18 05:59 05:59 05:59 Intake Total 250 1050 Output Total 600 Balance 250 450 PT 17.0 SEC (12.0-15.0) H 01/07/18 22:35 INR 1.37 (0.83-1.16) H 01/07/18 22:35 awake alert nad anicteric op clear exp wheeze, good air mvmt rrr no mrg soft nt nd no cce warm dry well perfused oriented appropiate ICD10 Worksheet Patient Problems: Problems Problem Status Onset UTI (urinary tract infection) Acute
--- NOTE | 2018-01-11 17:00 | ASMTCMCOM ---
CM Note CM Note Notes: [facility] called [facility] per pt's request, he has belongings in a locker there. CM spoke w/employee of residential who agreed to keep his locker until he is discharged and can collect them. Date Signed: 01/11/2018 04:59 PM Electronically Signed By:Kristy Hunter RN
[2018-01-11] MEDS: MBX SOLN 30 ML BOTTLE PO PRN (18:10)
[2018-01-11] MEDS: NYSTATIN SUSP 500000 UNIT/5 ML UDCUP PO SCH (20:44)
[2018-01-11] MEDS: LIDOCAINE 4%/MENTHOL 1% PATCH TD SCH (22:45)
[2018-01-12] MEDS: NYSTATIN SUSP 500000 UNIT/5 ML UDCUP PO SCH ×4 (05:02→21:54)
[2018-01-12] MEDS: NS W/ 20 KCl/L 1,000 ML IV SCH ×2 (05:02→16:00)
[2018-01-12] MEDS: VANCOMYCIN 125 MG/2.5 ML UDL PO SCH ×4 (05:02→21:54)
[2018-01-12] MEDS: IPRATROPIUM/ALBUTEROL 3 ML DEYVIAL IH SCH ×4 (05:31→23:45)
[2018-01-12] MEDS: ONDANSETRON 4 MG/2 ML VIAL IVP PRN ×2 (09:15→15:29)
[2018-01-12] MEDS: PANTOPRAZOLE SODIUM 40 MG TAB PO SCH (09:23)
[2018-01-12] MEDS: FOLIC ACID 1 MG TAB PO SCH (09:24)
[2018-01-12] MEDS: ENOXAPARIN 40 MG/0.4 ML SYR SC SCH (09:26)
[2018-01-12] MEDS: PATCH REMOVAL 1 EA PATCH TD SCH (12:43)
[2018-01-12] MEDS ORDERED: CALCIUM GLUCONATE 50 ML IV ONE (14:25)
[2018-01-12] MEDS ORDERED: CALCIUM GLUCONATE 1 GM in D5W 50 ML IV ONE (15:00)
--- NOTE | 2018-01-12 15:05 | HOSPPROG ---
Hospitalist Progress Note Assessment/Plan: 72 yo F with hx of RA on chronic immune suppression pw sepsis. # Sepsis-- 2/2 UTI and c diff - criteria on admission: HR, wbc's, elevated bili. Presented with flank pain, no e/o hydro on u/s. WBCs now normalized but initially very elevated. Afebrile. # "rib pain": new today, patient notes her left lateral chest hurts especially with a deep breath. Not hypoxic but mildly tachy. Will get xray, ecg and consider CTA if not improving as expected to eval for possible PE. Did likely aspirate yesterday which may be contributing. IS, CDB, ambulation/oob to chair. # proteus UTI: with > 100K proteus and symptomatic on arrival. [place] sensitive. Will transition from ctx to levaquin and complete 10 day total course. # Acute encephalopathy - 2/2 to acute infection, resolved. CT head neg for acute process, atrophy and microvascular dz noted. # Acute C diff - diarrhea improving--none yesterday and only a couple of times today, +h/o C diff 2 yrs ago, continue oral vanco # AHRF - Suspect largely due to atelectasis. Now on room air. CTA personally reviewed and neg for PE, atelectatic changes and pleural thickening related to prior breast cancer tx. Continue IS, OOB to chair/ambulation, nebs as needed. # generalized weakness/anorexia: appetite slow to return, mobility limited, working with pt/ot # thrush: presumed thrush noted on patients tongue, painful, started nystatin and magic mouthwash, patient states perhaps some slight improvement today # RA with chronic immune compromise - holding MTX and DMARD therapy during acute illness, can likely resume in coming days # Chronic lumbar compression fractures - xray pers reviewed/interp- chronic compression fractures. No midline tenderness. # Possible liver cirrhosis - incidental finding on u/s with small amt of ascites. Per Dr. Casiano notes, believes this is a familiar finding and possibly related to RA meds. Low albumin and elevated INR suggest poor synthetic function / coagulopathy. Hep studies negative, no PE findings c/w chronic liver disease. # Hypocalcemia - repleting as needed # Osteoporosis - on Prolia # GERD - cont PPI # Anemia / thrombocytopenia - macrocytic, nl B12 and folate. No e/o active bleeding. Plts trending up now. Recommend OP follow up. # DVT PPLX - Lovenox DNR Dispo - cont inpt for ongoing evaluation and management of sepsis and hypoxemia , PT/OT evals requested, will likely require SNF. CM informed. They live in [place]. Subjective: no significant overnight events, patient feeling worse today but was able to walk further than previously, not eating much, new left sided rib pain Objective: Vital Signs Temp Pulse Resp BP Pulse Ox 36.8 C 105 H 18 127/69 H 93 01/12/18 11:30 01/12/18 11:30 01/12/18 11:30 01/12/18 11:30 01/12/18 11:30 Laboratory Results 01/10/18 04:45 01/11/18 05:00 01/11/18 01/12/18 01/13/18 05:59 05:59 05:59 Intake Total 1050 200 Output Total 600 Balance 450 200 PT 17.0 SEC (12.0-15.0) H 01/07/18 22:35 INR 1.37 (0.83-1.16) H 01/07/18 22:35 awake alert nad anicteric op clear exp wheeze, good air mvmt rrr no mrg soft nt nd no cce warm dry well perfused oriented appropiate - Time Spent With Patient Time Spent with Patient: greater than 35 minutes Time Spent with Patient: Greater than 35 minutes spent on this patients care, greater than 50% of time spent counseling, educating, and coordinating care regarding the above mentioned plan. ICD10 Worksheet Patient Problems: Problems Problem Status Onset UTI (urinary tract infection) Acute
[2018-01-12] MEDS: HYDROCODONE/APAP 5/325 TAB PO PRN (15:06)
[2018-01-12] MEDS: MBX SOLN 30 ML BOTTLE PO PRN (15:44)
--- NOTE | 2018-01-12 16:06 | CPEKG ---
Heart Rate: 97 RR Interval: 619 P-R Interval: 156 QRSD Interval: 76 QT Interval: 356 QTC Interval: 452 P [place]: 60 QRS [place]: -52 T Wave [place]: 35 EKG Severity - ABNORMAL ECG - EKG Impression: SINUS RHYTHM EKG Impression: PROBABLE LEFT ATRIAL ABNORMALITY EKG Impression: LAD, CONSIDER LEFT ANTERIOR FASCICULAR BLOCK EKG Impression: LOW VOLTAGE THROUGHOUT EKG Impression: CONSIDER ANTERIOR INFARCT EKG Impression: BORDERLINE T ABNORMALITIES, ANTERIOR LEADS Electronically Signed By: Perez Bustos 14-Jan-2018 06:17:32
[2018-01-13] MEDS: LIDOCAINE 4%/MENTHOL 1% PATCH TD SCH ×2 (00:44→23:13)
[2018-01-13] MEDS: IPRATROPIUM/ALBUTEROL 3 ML DEYVIAL IH SCH ×4 (04:49→22:43)
[2018-01-13 04:55] LABS: PLATELET COUNT 110 10^3/uL (150-400)
[2018-01-13] MEDS: VANCOMYCIN 125 MG/2.5 ML UDL PO SCH ×4 (05:19→22:29)
[2018-01-13] MEDS: NYSTATIN SUSP 500000 UNIT/5 ML UDCUP PO SCH ×4 (05:19→21:00)
[2018-01-13] MEDS: ONDANSETRON 4 MG/2 ML VIAL IVP PRN (09:07)
[2018-01-13] MEDS: PANTOPRAZOLE SODIUM 40 MG TAB PO SCH (09:12)
[2018-01-13] MEDS: FOLIC ACID 1 MG TAB PO SCH (10:57)
[2018-01-13] MEDS: ENOXAPARIN 40 MG/0.4 ML SYR SC SCH (10:57)
[2018-01-13] MEDS: PATCH REMOVAL 1 EA PATCH TD SCH (10:59)
[2018-01-13] MEDS ORDERED: ONDANSETRON DISINTEGRATING 4 MG TAB PO PRN (11:52)
--- NOTE | 2018-01-13 13:19 | ASMTCMCOM ---
CM Note CM Note Notes: Met with patient and to review dc plan of care. They are hoping to be accepted to [facility] for rehab prior to them being able to drive to [place]. CM spoke to Kanchan who states bed available tomorrow. CM to follow. Plan: To SNF rehab Date Signed: 01/13/2018 01:19 PM Electronically Signed By:Shira Petersen RN
--- NOTE | 2018-01-13 16:43 | HOSPPROG ---
Hospitalist Progress Note Assessment/Plan: 72 yo F with hx of RA on chronic immune suppression pw sepsis. # Sepsis-- 2/2 UTI and c diff - now resolved # "rib pain": resolved and suspect was related to intercostal muscle injury from coughing, cxr wnl, trops negative, ecg non diagnostic # proteus UTI: with > 100K proteus and symptomatic on arrival. [place] sensitive. Will transition from ctx to levaquin and complete 10 day total course. # Acute encephalopathy - 2/2 to acute infection, resolved. CT head neg for acute process, atrophy and microvascular dz noted. # Acute C diff - diarrhea improving-continue oral vanco # AHRF - Suspect largely due to atelectasis. Now on room air. Continue IS, OOB to chair/ambulation, nebs as needed. # generalized weakness/anorexia: appetite slow to return, mobility limited, working with pt/ot # thrush: improved with nystatin and magic mouthwash # RA with chronic immune compromise - holding MTX and DMARD therapy during acute illness, will resume usual meds # Chronic lumbar compression fractures - xray pers reviewed/interp- chronic compression fractures. No midline tenderness. # Possible liver cirrhosis - incidental finding on u/s with small amt of ascites. Discussed with who plans to have this further addressed when they return home to [place]. # Hypocalcemia - repleting as needed # Osteoporosis - on Prolia # GERD - cont PPI # Anemia / thrombocytopenia - macrocytic, nl B12 and folate. No e/o active bleeding. Plts trending up now. Recommend OP follow up. # DVT PPLX - Lovenox DNR Dispo - will likely dc to snf in am Subjective: no significant overnight events, patient is now eating a bit better , energy improving slowly Objective: Vital Signs Temp Pulse Resp BP Pulse Ox 36.8 C 96 16 114/71 91 L 01/13/18 15:38 01/13/18 16:25 01/13/18 16:25 01/13/18 15:38 01/13/18 16:25 Laboratory Results 01/13/18 04:35 01/13/18 04:35 01/12/18 01/13/18 01/14/18 05:59 05:59 05:59 Intake Total 200 2645 Balance 200 2645 PT 17.0 SEC (12.0-15.0) H 01/07/18 22:35 INR 1.37 (0.83-1.16) H 01/07/18 22:35 awake alert nad anicteric op clear exp wheeze, good air mvmt rrr no mrg soft nt nd no cce warm dry well perfused oriented appropiate - Time Spent With Patient Time Spent with Patient: greater than 35 minutes Time Spent with Patient: Greater than 35 minutes spent on this patients care, greater than 50% of time spent counseling, educating, and coordinating care regarding the above mentioned plan. ICD10 Worksheet Patient Problems: Problems Problem Status Onset UTI (urinary tract infection) Acute
[2018-01-14] MEDS: IPRATROPIUM/ALBUTEROL 3 ML DEYVIAL IH SCH ×2 (05:16→11:27)
[2018-01-14] MEDS: VANCOMYCIN 125 MG/2.5 ML UDL PO SCH ×2 (05:40→13:12)
[2018-01-14] MEDS: NYSTATIN SUSP 500000 UNIT/5 ML UDCUP PO SCH ×2 (05:40→13:13)
[2018-01-14 08:56] VITALS: BP 113/66
[2018-01-14] MEDS: FOLIC ACID 1 MG TAB PO SCH (10:49)
[2018-01-14] MEDS: PANTOPRAZOLE SODIUM 40 MG TAB PO SCH (10:49)
[2018-01-14] MEDS: HYDROCODONE/APAP 5/325 TAB PO PRN (10:49)
[2018-01-14] MEDS: ENOXAPARIN 40 MG/0.4 ML SYR SC SCH (10:56)
--- NOTE | 2018-01-14 11:50 | PDIAF ---
- Diagnosis Code Status: Do Not Resuscitate - Medication Management Discharge Medications: Medications to Continue on Transfer Denosumab [Prolia] 60 mg SQ Q180D 01/07/18 [Last Taken 12/24/17] Docusate Sodium [Colace 100 MG (*)] 100 mg PO DAILY PRN 01/07/18 [Last Taken ] Folic Acid [Folic Acid 1 MG (*)] 1 mg PO DAILY 01/07/18 [Last Taken 01/07/18] Hydrocodone/Acetaminophen [[place] 5/325 (*)] 1 - 2 tab PO Q4H PRN 01/07/18 [Last Taken 01/07/18] Leflunomide [Arava 10 mg (*)] 10 mg PO DAILY 01/07/18 [Last Taken 01/07/18] Methotrexate [Xatmep] 15 mg PO MO 01/07/18 [Last Taken 01/07/18] Omeprazole Magnesium 20 mg PO DAILY 01/07/18 [Last Taken 01/07/18] Ondansetron [Zofran Odt] 8 mg PO TID PRN 01/07/18 [Last Taken 01/07/18] Acetaminophen [Tylenol 325mg (*)] 650 mg PO Q4HRS PRN tab 01/14/18 [Last Taken Unknown] Albuterol [Proventil Neb] 3 ml IH Q2HRS PRN deyvial 01/14/18 [Last Taken Unknown] Ipratropium/Albuterol [Duoneb (*)] 3 ml IH Q6HRS deyvial 01/14/18 [Last Taken Unknown] Lidocaine 4%/Menthol 1% [Icy Hot Lidocaine/Menthol 4%/1% Patch (*)] 1 patch TD Q24H patch 01/14/18 [Last Taken Unknown] Mbx Soln;Maalox/Diphen/Lido [Maalox/Diphenhydramine/Lido] 5 ml PO PRN PRN bottle 01/14/18 [Last Taken Unknown] Nystatin Susp [Mycostatin Oral Liquid] 5 ml MM QID 7 Days ml 01/14/18 [Last Taken Unknown] Ondansetron Odt [Zofran Odt 4 mg (*)] 4 mg PO Q4HRS PRN tab 01/14/18 [Last Taken Unknown] Patch Removal 1 ea TD Q24H patch 01/14/18 [Last Taken Unknown] Vancomycin [Vancomycin (*)] 125 mg PO Q6 7 Days cap 01/14/18 [Last Taken Unknown] levOFLOXACIN [levAQUIN (*)] 750 mg PO DAILY AT 10AM 3 Days tab 01/14/18 [Last Taken Unknown] Additional Medication Instructions: Continue levofloxacin for 3 more days, oral vancomycin for 7 more days and nystatin swish and swallow for 7 more days. Discharge Medications: Refer to the Discharge Home Medication list for PRN reason. - Orders Isolation Type: CDIFF Isolation, Contact Isolation Diet Recommendation: no restrictions on diet (push fluids, patient at risk of dehydration) Diet Texture: Regular Texture Diet, Thin Liquids, Meds Whole w/Liquids Weigh Patient: weekly Lucas: No Activity/Weight Bearing Restrictions: Fall risk. Additional Instructions: When you return to [place] you should be seen by a liver specialist ( dialysis biomed technician) for concerns of chronic liver disease/cirrhosis. You should also have your primary care doctor check your calcium levels which have been low during your hospitalization to determine if this needs to be worked up further. - Labs/Radiology BMP Date: 01/18/18 CBC w/diff Date: 01/18/18 - Follow Up Care Current Providers and Referrals: NONE *PRIMARY CARE P,. [Primary Care Provider] - As per Instructions
--- NOTE | 2018-01-14 11:50 | PDDCSUM ---
Discharge Summary Discharge Summary: Dates of service: 01/08-01/14/18 Discharge dx: # sepsis # proteus UTI # acute encephalopathy # acute c difficile colities # acute hypoxic respiratory failure # generalized weakness # thrush # hypocalcemia # chronic issues: suspected cirrhosis, RA and chronic immune suppression, chronic lumbar compression fractures, osteoporosis, GERD, anemia/ thrombocytopenia Consulations: none Procedures: chest cta, abd us Hospital course by problem: 72 yo F with hx of RA on chronic immune suppression pw sepsis. # Sepsis-- 2/2 UTI and c diff - now resolved # "rib pain": resolved and suspect was related to intercostal muscle injury from coughing, cxr wnl, trops negative, ecg non diagnostic # proteus UTI: with > 100K proteus and symptomatic on arrival. [place] sensitive. Will transition from ctx to levaquin and complete 10 day total course. # Acute encephalopathy - 2/2 to acute infection, resolved. CT head neg for acute process, atrophy and microvascular dz noted. # Acute C diff - diarrhea improving-continue oral vanco # AHRF - Suspect largely due to atelectasis. Now on room air. Continue IS, OOB to chair/ambulation, nebs as needed. # generalized weakness/anorexia: appetite slow to return, mobility limited, working with pt/ot # thrush: improved with nystatin and magic mouthwash # RA with chronic immune compromise - holding MTX and DMARD therapy during acute illness, will resume usual meds # Chronic lumbar compression fractures - xray pers reviewed/interp- chronic compression fractures. No midline tenderness. # Possible liver cirrhosis - incidental finding on u/s with small amt of ascites. Discussed with who plans to have this further addressed when they return home to [place]. # Hypocalcemia - repleting as needed # Osteoporosis - on Prolia # GERD - cont PPI # Anemia / thrombocytopenia - macrocytic, nl B12 and folate. No e/o active bleeding. Plts trending up now. Recommend OP follow up. # DVT PPLX - Lovenox DNR DC to SNF, patient and [place] f/u on mouth lesions, resolution of diarrhea, hypocalcemia (if not resolved when eating may require further w/u), anemia/thrombocytopenia > 35 min spent in dc more than half in coordination of care
[2018-01-14] MEDS: PATCH REMOVAL 1 EA PATCH TD SCH (13:14)
--- NOTE | 2018-01-14 14:21 | ASDISCHSUM ---
Discharge Information Plan Status:SNF Medically Cleared to Leave:01/14/2018 Discharge Date:01/14/2018 02:18 PM CM D/C Disposition: ADT D/C Disposition:Prison Facility Projected Discharge Date:01/14/2018 11:00 AM Transportation at D/C: Discharge Delay Reason: Follow-Up Date:01/14/2018 11:00 AM Discharge Slot: Final Diagnosis: Placement Information Referral Type:*Custodial/SNF Referral ID:[id number] Provider Name:[facility] Address 1:[address] Address 2: City:[place] Selection Factors: State:[place] Patient Contact Information Contact Name:ALBERTO Relationship: [address] Work Phone: City:[facility] Phone: State/Zip Code:[place] [address] Email: Financial Information Financial Class:Medicare Primary Plan Desc:MEDICARE INPATIENT Primary Plan Number:[id number] Secondary Plan Desc: OUT OF [facility] Secondary Plan Number:[id number] Assessment Information [facility] Initial CM Assessment Living Arrangements What is your living Answers: With Spouse arrangement? Who do you live with? Type Of Residence What kind of residence do Answers: House you live in? Discharge Plan Comments Coordination Status Comments Notes: Pt is a 72 y/o female admitted for an UTI. Pt will most likely d/c independent when medically stable. No therapies ordered at this time. CM available for changes. Plan: Independent Date Signed: 01/08/2018 11:14 AM Electronically Signed By:NIR Rod [facility] CM Progress Note CM Note CM Note Notes: CM met w/ pt, and daughter for dispo planning. CM spoke w/ Dr. Casiano regarding d/c POC. Dr. Casiano is recommending SNF. Therapies have been ordered. CM provided family w/ senior blue book. Family reports that pt does better at home w/ HC. Pt has been to SNF before in [place]. Pt and her are visiting from [place]. CM provided pt and family CM's phone number. CM to follow. 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 Met with family, they will be touring facilities tomorrow, CM checked into but no availability at this time. Family to let CM know their choice. DC Plan: SNF Date Signed: 01/10/2018 12:14 PM Electronically Signed By:Kristy Hunter RN [facility] CM Progress Note CM Note CM Note Notes: Spoke w/pt's again, would like referrals sent to [facility] and [facility]. DC Plan: SNF Date Signed: 01/10/2018 03:40 PM Electronically Signed By:Kristy Hunter RN [facility] CM Progress Note CM Note CM Note Notes: Spoke w/pt's , they have chosen [facility] rehab. CM spoke w/Kanchan, she is still reviewing. Pt will be ready for dc in a few days. DC Plan: SNF Date Signed: 01/11/2018 03:19 PM Electronically Signed By:Kristy Hunter RN [facility] MARIAA Progress Note CM Note CM Note Notes: [facility]'s request, he has belongings in a locker there. CM spoke w/employee of [facility] who agreed to keep his locker until he is discharged and can collect them. Date Signed: 01/11/2018 04:59 PM Electronically Signed By:Kristy Hunter RN [facility] MARIA A Progress Note CM Note CM Note Notes: Met with patient and to review dc plan of care. They are hoping to be accepted to [facility] for rehab prior to them being able to drive to [place]. CM spoke to Kanchan who states bed available tomorrow. CM to follow. Plan: To [facility] rehab Date Signed: 01/13/2018 01:19 PM Electronically Signed By:Shira Petersen RN Case Management Discharge Plan Note Case Management Discharge Discharge Order Complete? Answers: Yes Patient to Obtain Answers: Other Notes: [facility] Transportation Arranged Answers: Other Notes: [facility] EMTALA Complete Answers: No Case Management Transport Answers: No Form Complete Faxed Final Orders Answers: Yes Agency/Facility Transfer Answers: Yes Report Printed & Faxed to Receiving Agency Family Notified Answers: Yes Discharge Comments Notes: spoke w/ Dr. Duron regarding d/c POC. Pt is medically stable to d/c today. CM spoke w/ Iesha at [facility] and they have a bed available for her today. Iesha has arranged transportation for pt. 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 DC orders sent. CM provided MARA Vargas w/ phone number to give report. CM available for changes. Plan: Date Signed: 01/14/2018 12:17 PM Electronically Signed By:NIR Rod Intervention Information Intervention Type:*IM-Signed Date of Service:01/11/2018 12:24 PM Patient Type:Inpatient Staff Member:Stella Peace Hours: Discipline: Severity: Comment: Intervention Type:*IM-Signed Date of Service:01/14/2018 12:18 PM Patient Type:Inpatient Staff Member:Stella Peace Hours: Discipline: Severity: Comment:
== END 2018-01-14 14:18 | DRG 871 ==
LOC: F3E 23:29
PROVIDERS: ADMIT Family Medicine; ATTEND Family Medicine
DX: A41.89 Other specified sepsis (principal); N39.0 Urinary tract infection, site not specified; B96.4 Proteus (mirabilis) (morganii) as the cause of diseases classified elsewhere; J96.01 Acute respiratory failure with hypoxia; A04.71 Enterocolitis due to Clostridium difficile, recurrent; E87.1 Hypo-osmolality and hyponatremia; B37.0 Candidal stomatitis; E83.51 Hypocalcemia; M06.9 Rheumatoid arthritis, unspecified; K21.9 Gastro-esophageal reflux disease without esophagitis; M81.0 Age-related osteoporosis without current pathological fracture; D69.6 Thrombocytopenia, unspecified; D63.8 Anemia in other chronic diseases classified elsewhere; Z66 Do not resuscitate
CPT/HCPCS: 82607-90; 86705-90; 86708-90; 92610-GN; 96374; 97110-GP; 97116-GP; 97162-GP; 97165-GO; 97530-GO; 97530-GP; 97535-GO; G0472; G8978-GP-CL; G8979-GP-CK; G8987-GO-CK; G8988-GO-CI; G8996-GN-CI; G8997-GN-CI; G8998-GN-CI; J0610; J0696; J1650; J1940; J2270; J2405; J7613; Q9967